=== PATIENT | male | born 2000 | race Asian ===

== ENCOUNTER 2019-08-31 15:08 | Outpatient (CLI) | payer OTHER, SELFPAY ==
--- NOTE | ~2019-08-31 | US_ITS ---
US scrotum doppler INDICATION: Testicular pain TECHNIQUE: Testicular sonogram utilizing grayscale and color Doppler FINDINGS: The testes are normal in size and appearance. No focal lesions are seen. The right testes measures 3.6 x 2.2 x 2.1 cm centimeters, and the left testis measures 3.3 x 1.8 x 2.3 cm cm. There is normal vascular flow to both testes. There is a 5 mm right epididymal cysts. There is no varicocele or hydrocele. There is physiologic fluid surrounding the testes. IMPRESSION: 1. 5 mm right epididymal cyst. Otherwise, unremarkable testicular ultrasound. Reviewed, dictated and finalized at location A.
== END 2019-08-31 15:09 | disposition home or self-care (01) ==
PROVIDERS: PCP Internal Medicine; Visit Provider Nurse Practitioner
DX: N50.3 Cyst of epididymis (principal)
CPT/HCPCS: 76870; 93976

== ENCOUNTER 2022-06-12 16:12 | Emergency (ER) | payer OTHER, SELFPAY ==
[2022-06-12 16:29] VITALS: BP 133/80; PULSE 99; RESP 16; TEMP 35.8; O2SAT 100
--- NOTE | 2022-06-12 17:07 | ED.URI ---
HPI - URI/Sore Throat General Chief Complaint: Upper Respiratory Infection Stated Complaint: cough Time Seen by Provider: 06/12/22 17:10 Source: patient, RN notes reviewed and old records reviewed Mode of arrival: ambulatory Limitations: no limitations History of Present Illness HPI Narrative: 21 year old male presents to [facility] care with complaints of cough, runny nose, sore throat and headache for the past 1 week duration. Patient states that he has been taking Tylenol , Advil cold medication, cough drops and he started Mucinex yesterday. He reports that headache and sore throat have improved but cough and congestion lingering. He reports that he took home COVID test which was negative. Patient does reports history of asthma and sinusitis. MD elicited complaint: cough and sore throat Pertinent past history: asthma and seasonal allergies Onset (ago): week(s) (1) Related Data Allergies Allergy/AdvReac Type Severity Reaction Status Date / Time No Known Allergies Allergy Unverified 06/12/22 17:03 Review of Systems Review of Systems: CONSTITUTIONAL: Denies malaise, chills, sweats, or fever. EYES: Denies visual changes, redness, or discharge. ENT: Reports rhinorrhea, congestion, sinus pain, no otalgia positive sore throat. CARDIOVASCULAR: Denies chest pain, palpitations, or edema. RESPIRATORY: Reports cough.? Denies dyspnea. GASTROINTESTINAL: Denies abdominal pain, nausea, vomiting, diarrhea SKIN: Denies rash or itching. MUSCULOSKELETAL: Denies myalgia. NEUROLOGIC: reports headache. All systems reviewed & are unremarkable except as noted in HPI and below PMFSH Past Medical History Medical History (Updated 06/14/22 @ 11:41 by Zohra Mcwilliams NP) Allergies Asthma Broken wrist Left 2015 Male circumcision age 1 Social History Social History Smoking status: Former smoker Alcohol intake: never Substance use: never Comments At time of signature, agree with nursing past medical, surgical, social and family history. There is no relevant family history pertinent to the presenting complaint Exam Narrative: GENERAL: Well-appearing, well-nourished, and in no acute distress. HEAD: Normocephalic EYES: PERRLA, conjunctivae clear ENT: Nares clear, turbinates edematous and erythematous, clear discharge. Mucous membranes moist. TM pearly barlow with dull light reflex bilaterally; no tragal tenderness. Oropharynx erythematous without lesions. Tonsils not enlarged and without exudate, no drooling, no hoarseness, no trismus, uvula midline.post nasal drainage NECK: Supple. No lymphadenopathy CHEST: Clear to auscultation, breath sounds equal. No wheezing, rhonchi, rales, or stridor. No respiratory distress, speaks in full sentences.harsh cough, SAO2 100% on room air HEART: Regular rate and rhythm. No murmur heard. SKIN: Warm, dry, no rash. NEURO: Alert and oriented x3. PSYCH: Normal mood and affect Course Course Emergency Course: Patient is aware of diagnosis, understands and agrees to treatment plan.? Anticipatory guidance given.? Patient agrees to follow-up as directed and is aware of reasons to seek care at the emergency department. Portions of this record may have been created with voice recognition software Level of Care: Express Care Visit Vital Signs Vital signs: Vital Signs Temperature 35.8 C L 06/12/22 16:29 Pulse Rate 99 06/12/22 16:29 Respiratory Rate 16 06/12/22 16:29 Blood Pressure 133/80 06/12/22 16:29 Pulse Oximetry 100 06/12/22 16:29 Oxygen Delivery Room Air 06/12/22 16:29 Temperature 35.8 C L 06/12/22 16:29 Pulse Rate 99 06/12/22 16:29 Respiratory Rate 16 06/12/22 16:29 Blood Pressure 133/80 06/12/22 16:29 Pulse Oximetry 100 06/12/22 16:29 Oxygen Delivery Room Air 06/12/22 17:04 Reviewed MDM - URI/Sore Throat MDM Narrative Medical decision making narrative: Different
== END 2022-06-12 18:05 | disposition home or self-care (01) ==
PROVIDERS: Emergency Provider Registered Nurse; PCP Internal Medicine
DX: J06.9 Acute upper respiratory infection, unspecified (principal); Z87.891 Personal history of nicotine dependence
CPT/HCPCS: 87081; 87880; 99213; G0463

== ENCOUNTER 2023-03-05 11:18 | Emergency (ER) | payer BC, SELFPAY ==
[2023-03-05 11:33] VITALS: BP 141/75; PULSE 87; RESP 16; TEMP 36.9; O2SAT 99
--- NOTE | 2023-03-05 11:39 | ED.URI ---
HPI - URI/Sore Throat General Chief Complaint: Upper Respiratory Infection Stated Complaint: + COVID/NEEDS DOCTOR NOTE FOR WORK Time Seen by Provider: 03/05/23 11:37 Source: patient and RN notes reviewed Mode of arrival: ambulatory Limitations: no limitations History of Present Illness HPI Narrative: 22-year-old male presents with concern for returning to work after having a positive COVID test. Reports he tested at home on Wednesday and his symptoms started on Wednesday. Reports he started having a sore throat 2 days ago. Reports he has been taking Mucinex. MD elicited complaint: sore throat Related Data Allergies Allergy/AdvReac Type Severity Reaction Status Date / Time No Known Allergies Allergy Unverified 03/05/23 11:26 Review of Systems Review of Systems: CONSTITUTIONAL: Denies malaise, chills, sweats, or fever. EYES: Denies visual changes, redness, or discharge. ENT: Reports rhinorrhea, congestion, and sore throat. CARDIOVASCULAR: Denies chest pain, palpitations, or edema. RESPIRATORY: Reports cough. Denies dyspnea. GASTROINTESTINAL: Denies abdominal pain, nausea, vomiting, diarrhea SKIN: Denies rash or itching. MUSCULOSKELETAL: Reports myalgia. NEUROLOGIC: Denies headache. All systems reviewed & are unremarkable except as noted in HPI and below PMFSH Past Medical History Medical History (Updated 03/05/23 @ 11:43 by Christine Grayson NP) Allergies Asthma Broken wrist Left 2015 Male circumcision age 1 Social History Social History Smoking status: Former smoker Alcohol intake: never Substance use: never Comments At time of signature, agree with nursing past medical, surgical, social and family history. There is no relevant family history pertinent to the presenting complaint Exam Narrative: GENERAL: Well-appearing, well-nourished, and in no acute distress. HEAD: Normocephalic EYES: PERRLA, conjunctivae clear ENT: Nares clear, turbinates edematous and erythematous, clear discharge. Mucous membranes moist. TM pearly barlow with dull light reflex bilaterally; no tragal tenderness. Oropharynx erythematous without lesions. Tonsils not enlarged and without exudate, no drooling, no hoarseness, no trismus, uvula midline. NECK: Supple. No lymphadenopathy CHEST: Clear to auscultation, breath sounds equal. No wheezing, rhonchi, rales, or stridor. No respiratory distress, speaks in full sentences. HEART: Regular rate and rhythm. No murmur heard. SKIN: Warm, dry, no rash. NEURO: Alert and oriented x3. PSYCH: Normal mood and affect Course Course Emergency Course: Patient is aware of diagnosis, understands and agrees to treatment plan. Anticipatory guidance given. Patient agrees to follow-up as directed and is aware of reasons to seek care at the emergency department. Portions of this record may have been created with voice recognition software Level of Care: Express Care Visit Vital Signs Vital signs: Vital Signs Temperature 98.4 F 03/05/23 11:33 Pulse Rate 87 03/05/23 11:33 Respiratory Rate 16 03/05/23 11:33 Blood Pressure 141/75 H 03/05/23 11:33 Pulse Oximetry 99 03/05/23 11:33 Temperature 98.4 F 03/05/23 11:33 Pulse Rate 87 03/05/23 11:33 Respiratory Rate 16 03/05/23 11:33 Blood Pressure 141/75 H 03/05/23 11:33 Pulse Oximetry 99 03/05/23 11:33 Reviewed. MDM - URI/Sore Throat MDM Narrative Medical decision making narrative: Differential diagnosis considered: Kumar virus, strep pharyngitis, allergic rhinitis, upper respiratory tract infection, sinusitis, rhinosinusitis, nasopharyngitis. viral pharyngitis, otitis media, otitis externa, pneumonia, bronchitis, viral cough syndrome, viral syndrome, and influenza. Exam findings show no acute concerns or changes; patient is non-toxic appearing and is in no distress. Patient is appropriate for outpatient treatment and follow-up. Lab Data Attestation: I re
== END 2023-03-05 11:47 | disposition home or self-care (01) ==
PROVIDERS: Emergency Provider Nurse Practitioner; PCP Internal Medicine
DX: J02.0 Streptococcal pharyngitis (principal); Z87.891 Personal history of nicotine dependence; J45.909 Unspecified asthma, uncomplicated
CPT/HCPCS: 87880; 99213; G0463

== ENCOUNTER 2024-05-10 17:01 | Emergency (ER) | payer BC, SELFPAY ==
--- NOTE | 2024-05-10 17:02 | ED_ITS ---
HPI - URI/Sore Throat General Chief Complaint: Upper Respiratory Infection Stated Complaint: COUGH/COLD Time Seen by Provider: 05/10/24 17:02 Source: patient Mode of arrival: ambulatory Limitations: no limitations History of Present Illness HPI Narrative: Patient is a 23-year-old male who presents with body aches, headache, congestion, productive cough, fatigue for 4 days. Denies any fever, chills, nausea, vomiting, diarrhea. Has taken [id number] medicine no relief. Related Data Allergies Allergy/AdvReac Type Severity Reaction Status Date / Time No Known Allergies Allergy Unverified 05/10/24 17:05 Review of Systems Review of Systems: All systems reviewed & are unremarkable except as noted in HPI and below Constitutional: Constitutional: Reports body ache(s), Denies chills, Reports fatigue, Denies fever(s), Reports headache(s), Denies malaise and Denies weakness Eyes: Eyes: Denies blurry vision, Denies itchy eyes and Denies loss of vision ENT: Denies otalgia, Denies headache(s), Reports nasal congestion, Denies sinus pain and Denies sore throat Cardiovascular: Cardiovascular: Denies chest pain, Denies irregular heart rhythm and Denies dyspnea Respiratory: Respiratory: Reports cough and Denies dyspnea Gastrointestinal: Gastrointestinal: Denies abdominal pain, Denies diarrhea, Denies nausea and Denies vomiting Musculoskeletal: Musculoskeletal: Denies back pain, Denies myalgias and Denies arthralgias Integumentary/Breasts: Skin/Breast: Denies pruritus and Denies rash Neurologic: Denies headache(s), Denies loss of vision and Denies weakness Psychiatric: Psychiatric: Reports no additional psychiatric complaints Endocrine: Endocrine: Denies fatigue Allergic/Immunologic: Allergic/Immunologic: Denies itchy eyes PMFSH Past Medical History Medical History Male circumcision age 1 Asthma Allergies Broken wrist Left 2014 Social History Social History Smoking status: Former smoker Alcohol intake: never Substance use: never Comments At time of signature, agree with nursing past medical, surgical, social and family history. There is no relevant family history pertinent to the presenting complaint. Exam Const: General: cooperative, healthy appearing, comfortable, no acute distress and well nourished Nutritional Appearance: well nourished Orientation/consciousness: patient oriented x3 Limitations: no limitations HENMT: Head: normal to inspection, normocephalic and atraumatic Ears: hearing grossly normal bilaterally, external ears normal, TM's normal bilaterally, EAC's normal and no periauricular adenopathy Face/Nose/Sinus: Normal external nose present, Abnormal mucous membranes and turbinates present erythematous bilateral and diffuse, normal facial exam, sinuses nontender and face symmetric Face and sinus: normal facial exam, sinuses nontender and face symmetric Mouth: Yes Normal oral and palatal mucosa present, Yes lip normal, Yes tongue normal, Yes Normal salivary glands and ducts present, Yes oropharynx normal and Yes moist mucous membranes Teeth and gingiva: dentition normal Throat: posterior oropharynx normal, tonsils normal and uvula midline Eyes: General: appearance normal, both eyes and all related structures Alignment and Position: alignment normal and position normal Periorbital: periorbital findings normal Eyelids: eyelids normal Pupils: Equal, round and reactive pupils present Neck: Neck: normal visual inspection, full ROM, no lymphadenopathy and supple Chest: Chest palpation & inspection: normal inspection of the chest and normal palpation of entire chest wall Resp: Effort & Inspection: normal respiratory effort and able to speak in complete sentences Auscultation: clear to auscultation bilaterally, no crackles, no rales, no rhonchi and no wheezes Cardio: Rate: regular rate Rhythm: regular rhythm Heart sounds: S1 normal heart sound present and S2 normal heart sound present GI: Inspection: normal to inspection Skin: General skin exam: normal color and no rashes or lesions noted Neuro: General: patient oriented x3 and moves all extremities Cranial ner ves: Yes Equal, round and reactive pupils present Speech: normal speech Gait exam (Neuro): Normal gait present Extrem: General: normal to inspection, full ROM and no edema Psych: Appearance: grossly normal and well kempt Mental Status: mental status grossly normal Speech and movement: Normal speech and movement present Affect: normal affect Attitude: cooperative Thought process: Normal thought process present Course Course Emergency Course: Discharge instructions reviewed with patient, as well as provided in writing per nursing staff. The instructions also include specific and strict return/GO TO THE ER as well as f/u information. All questions have been answered, and the patient deny any further questions with discharge and discharge plan. Portions of this record may have been created with voice recognition software Level of Care: Express Care Visit Vital Signs Vital signs: Vital Signs Temperature 36.5 C 05/10/24 17:11 Pulse Rate 96 05/10/24 17:11 Respiratory Rate 16 05/10/24 17:11 Blood Pressure 137/87 05/10/24 17:11 Pulse Oximetry 98 05/10/24 17:11 Temperature 36.5 C 05/10/24 17:11 Pulse Rate 96 05/10/24 17:11 Respiratory Rate 16 05/10/24 17:11 Blood Pressure 137/87 05/10/24 17:11 Pulse Oximetry 98 05/10/24 17:11 Reviewed MDM - URI/Sore Throat MDM Narrative Medical decision making narrative: Pt well hydrated appearing, in no respiratory distress, hemodynamically stable. Recommend supportive care. The patient is stable at time of discharge the clinical impression was discussed and the patient was given the opportunity to ask questions, which were addressed as completely as possible given the information available at present. Anticipatory guidance and return to care precautions were discussed and the importance of primary care follow-up was stressed and encouraged. The patient voiced understanding of the plan, indications to return, and the need for follow-up. Differential diagnosis considered: Kumar virus, strep pharyngitis, allergic rhinitis, upper respiratory tract infection, sinusitis, rhinosinusitis, nasopharyngitis. viral pharyngitis, otitis media, otitis externa, otitis effusion, foreign body, cerumen impaction, viral syndrome, and influenza.? Exam findings show no acute concerns or changes; patient is non-toxic appearing and is in no distress.? Patient is appropriate for outpatient treatment and follow- up.? Medical Records Attestation: I reviewed the patient's medical records. Lab Data Attestation: I reviewed the patient's lab results. Labs: Lab Results 05/10/24 Range/Units 17:19 POC Influenza A Ag Negative (Negative) POC Influenza B Ag Negative (Negative) POC SARS CoV-2 Ag Negative (Negative) Discharge Plan Discharge Clinical Impression: Upper respiratory infection Qualifiers: URI type: unspecified viral URI Qualified Code(s): J06.9 - Acute upper respiratory infection, unspecified Patient Disposition: Home, Self-Care Condition: Stable Additional Instructions: You were negative for flu and COVID Your symptoms are likely due to a viral illness, which is not treated with antibiotics. Viral symptoms can be present for up to a few weeks. -For fever/pain, you may take: Tylenol 650-1000mg by mouth every 4-6 hours. Do not exceed 4000mg in 24 hours. Advil (Ibuprofen) 600 mg by mouth every 6 hours. Do not exceed 2400mg in 24 hours. 8 AM: Tylenol 11 AM: Ibuprofen 2 PM: Tylenol 5 PM: Ibuprofen 8 PM: Tylenol 11 PM: Ibuprofen 2 AM: Tylenol 5 AM: Ibuprofen -Antihistamine medication such as Benadryl/Zyrtec at night and Claritin/Dana during the day can help improve symptoms. -Use Flonase twice a day for 5 days then daily to help reduce the inflammation and dry up your sinuses. -You can also use Sudafed behind the pharmacy counter(12 or 24 hour). Be sure to drink plenty of water with these medications at least 8 ounces with every dose and it is important to drink 8 to 10 glasses of water per day. Water is a natural decongestant -Eat and drink things that are easy to swallow, like tea or soup, or popsicles. -Oral rinses such as: Salt water gargles and/or may use topical anesthetic (eg. Chloraseptic spray) or lozenges to relieve dryness or throat pain). -Frequent hand washing or hand senior office assistant is one of the best ways to prevent spread of infection. -Using a vaporizer or humidifier at night will also help thin secretions and help with coughing up phlegm. -Follow up with primary care provider in 3-5 days if condition is not improving - For new or worsening symptoms go directly to the nearest ER Patient Language: Montenegrin Prescriptions: New benzonatate 100 mg capsule 100 mg PO BID PRN (Reason: cough) Qty: 14 0RF fluticasone propionate [Flonase Allergy Relief] 50 mcg/actuation spray,suspension 1 spray intranasal DAILY Qty: 16 0RF Rx Instructions: administer into each nostril Follow-up/Referrals: Morteza Rodriguez DO [Primary Care Provider] - 3 Days Stand Alone Forms: Work/School Release IP Time of Disposition: 17:24
[2024-05-10 17:11] VITALS: BP 137/87; PULSE 96; RESP 16; TEMP 36.5; O2SAT 98
[2024-05-10 17:21] LABS: EDCOVIDSCREEN Negative (Negative); EDINFLUASCREEN Negative (Negative); EDINFLUBSCREEN Negative (Negative)
== END 2024-05-10 17:30 | disposition home or self-care (01) ==
PROVIDERS: Emergency Provider Nurse Practitioner Family; PCP Internal Medicine
DX: J06.9 Acute upper respiratory infection, unspecified (principal); Z20.822 Contact with and (suspected) exposure to COVID-19; Z87.891 Personal history of nicotine dependence; J45.909 Unspecified asthma, uncomplicated
CPT/HCPCS: 87426; 87804; 99213; G0463

== ENCOUNTER 2024-06-20 15:30 | Emergency (ER) | payer BC, SELFPAY ==
[2024-06-20 15:34] VITALS: BP 121/73; PULSE 83; RESP 16; TEMP 36.3; O2SAT 99
--- NOTE | 2024-06-20 15:36 | ED.URI ---
HPI - URI/Sore Throat General Chief Complaint: Upper Respiratory Infection Stated Complaint: BODY ACHES/HEADACHE Source: patient and RN notes reviewed Mode of arrival: ambulatory Limitations: no limitations History of Present Illness HPI Narrative: Patient is a 23-year-old male who presents to the [facility] with complaints of congestion, body aches, and headache that started this morning. He endorses an infrequent nonproductive cough. Denies chest pain or shortness of breath. Denies known fevers. Believes that he could have COVID or flu. However, he is unsure of any known sick contacts. Related Data Allergies Allergy/AdvReac Type Severity Reaction Status Date / Time No Known Allergies Allergy Unverified 06/20/24 15:35 Review of Systems Review of Systems: CONSTITUTIONAL: Denies fever, chills, or sweats. EYES: Denies visual changes, redness, or discharge. ENT: Denies otalgia and sore throat. Reports congestion. CARDIOVASCULAR: Denies chest pain, palpitations, or edema. RESPIRATORY: Denies cough or dyspnea. GASTROINTESTINAL: Denies abdominal pain, nausea, vomiting, or diarrhea. GENITOURINARY: Denies dysuria or hematuria. SKIN: Denies rash or itching. MUSCULOSKELETAL: Denies back pain and joint pain, but reports myalgia. NEUROLOGIC: Reports headache but denies numbness or weakness. Pertinent positives per HPI. [facility] Past Medical History Medical History Male circumcision age 1 Asthma Allergies Broken wrist Left 2014 Social History Social History Smoking status: Former smoker Alcohol intake: never Substance use: never Comments At the time of my signature, I reviewed and agree with the nursing past medical, surgical, social, and family history. There is no relevant family history pertinent to the patient complaint. Exam Narrative: GENERAL: This is a well-nourished, well-developed patient, in no apparent distress. HEAD: normocephalic, atraumatic. EYES: PERRL. Sclera clear/white. Vision is grossly intact. EARS: External ears normal, auditory canals clear and without drainage, TMs normal without perforation. Hearing grossly intact. NOSE: External nose normal with no obvious nasal discharge, nares without redness, no rhinorrhea. THROAT: Mucous membranes moist, posterior pharynx clear. NECK: Neck supple, non-tender without lymphadenopathy, masses or thyromegaly. CARDIOVASCULAR: Regular rate and rhythm without murmurs, gallops, or rubs. RESPIRATORY: Clear to auscultation. Breath sounds equal bilaterally. No wheezes, rales, or rhonchi. GASTROINTESTINAL: Abdomen soft, non-tender, nondistended. Bowel sounds are active. No hepato-splenomegaly, or palpable masses. No guarding. SKIN: warm, intact with no suspicious lesions or rash, good texture and turgor. NEURO: awake, alert, and oriented to person, place and time. There were no obvious focal neurologic abnormalities. EXTREMITIES: No clubbing, cyanosis, or edema. No joint tenderness, effusion, or edema noted. BACK: Nontender without deformity or crepitance. No flank tenderness. Course Course Level of Care: Express Care Visit Vital Signs Vital signs: Vital Signs Temperature 97.3 F L 06/20/24 15:34 Pulse Rate 83 06/20/24 15:34 Respiratory Rate 16 06/20/24 15:34 Blood Pressure 121/73 06/20/24 15:34 Pulse Oximetry 99 06/20/24 15:34 Oxygen Delivery Room Air 06/20/24 15:34 Temperature 97.3 F L 06/20/24 15:34 Pulse Rate 83 06/20/24 15:34 Respiratory Rate 16 06/20/24 15:34 Blood Pressure 121/73 06/20/24 15:34 Pulse Oximetry 99 06/20/24 15:34 Oxygen Delivery Room Air 06/20/24 15:34 Reviewed MDM - URI/Sore Throat MDM Narrative Medical decision making narrative: Take steroids as directed. Increase fluids at home. Avoid any and all smoke. May use a humidifier in the bedroom. Increase your Vitamin C. Follow-up with personal physician in 2-5 days. Differential Diagnosis Differential diagnosis: Likely upper respiratory infection, sinusitis, viral infection and other ( COVID) Lab Data Attestation: I reviewed the patient's lab results. Critical Care Time Critical Care Time Critical Care Time: No Discharge Plan Discharge Clinical Impression: Viral sinusitis Patient Disposition: Home, Self-Care Condition: Stable Instructions: Acute Bronchitis (ED) Additional Instructions: Take steroids as directed. Increase fluids at home. Avoid any and all smoke. May use a humidifier in the bedroom. Increase your Vitamin C. Follow-up with personal physician in 2-5 days. Patient Language: Uruguayan Prescriptions: New prednisone 50 mg tablet 50 mg PO DAILY 5 Days Qty: 5 0RF fluticasone propionate [Flonase Allergy Relief] 50 mcg/actuation spray,suspension 1 spray intranasal BID Qty: 16 0RF Rx Instructions: administer into each nostril Follow-up/Referrals: Morteza Rodriguez DO [Primary Care Provider] - Time of Disposition: 15:59
[2024-06-20 15:59] LABS: EDCOVIDSCREEN Negative (Negative); EDINFLUASCREEN Negative (Negative); EDINFLUBSCREEN Negative (Negative)
== END 2024-06-20 16:10 | disposition home or self-care (01) ==
PROVIDERS: Emergency Provider Nurse Practitioner; PCP Internal Medicine
DX: J32.8 Other chronic sinusitis (principal); B97.89 Other viral agents as the cause of diseases classified elsewhere; J45.909 Unspecified asthma, uncomplicated; Z20.822 Contact with and (suspected) exposure to COVID-19
CPT/HCPCS: 87426; 87804; 99213; G0463

== ENCOUNTER 2024-10-07 19:01 | Emergency (ER) | payer BC, SELFPAY ==
--- NOTE | 2024-10-07 19:10 | ED_ITS ---
HPI - Chest Pain General Chief Complaint: Chest Pain Stated Complaint: Chest Pain, Arm Numbness Time Seen by Provider: 10/07/24 19:10 Source: patient Mode of arrival: ambulatory Limitations: no limitations History of Present Illness HPI narrative: 23 y/o male presented for c/o chest pain and heart racing. onset this morning when he woke. Pain is to the center of the chest, described as constant, rates 4/10. 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 Says he drank coffee after onset. Admits to heavy lifting at his job this week but denies specific injury. Denies dizziness, nausea, vomiting, cough, wheezing or fever. Denies hx anxiety, drug use, or excessive caffeine. 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 Related Data Allergies Allergy/AdvReac Type Severity Reaction Status Date / Time No Known Allergies Allergy Verified 10/07/24 19:11 Review of Systems Review of Systems: CONSTITUTIONAL: Denies body aches, fever, chills, or sweats. EYES: Denies visual changes, redness, or discharge. ENT: Denies rhinorrhea, congestion, sore throat, or otalgia. CARDIOVASCULAR: reports chest pain, palpitations RESPIRATORY: Denies cough reports dyspnea. GASTROINTESTINAL: Denies abdominal pain, nausea, vomiting, or diarrhea. SKIN: Denies rash, itching, or wounds. MUSCULOSKELETAL: Denies back pain, joint pain, or myalgia. NEUROLOGIC: Denies headache, or extremity weakness reports left arm tingling PSYCH: Denies depression or anxiety. All systems reviewed & are unremarkable except as noted in HPI and below PMFSH Past Medical History Medical History Male circumcision age 1 Asthma Allergies Broken wrist Left 2015 Social History Social History Smoking status: Former smoker Alcohol intake: never Substance use: never Comments At time of signature, I have reviewed and agree with nursing past medical, surgical, social and family history unless otherwise noted. Please see nursing chart for further information. There is no relevant family history pertinent to the presenting complaint Exam Narrative: GENERAL: Well-appearing, and in no acute distress. EYES: EOMI. No redness or drainage. Conjunctivae normal. ENT: Mucous membranes pink and moist. No rhinorrhea. CHEST: No respiratory distress. Clear to auscultation. Nontender chest with palpation. HEART: Regular rate and rhythm. No murmur appreciated. Normal peripheral pulses. ABDOMEN: Soft, nontender, nondistended, normal active bowel sounds. EXTREMITIES: Normal range of motion. Serology Teacher strength equal bilaterally. Normal sensation to BUEs SKIN: Warm, dry, no rash. Capillary refill normal. Normal skin turgor. NEURO: No focal deficits. Alert and oriented x3. Gait steady. PSYCH: Appears anxious Course Course Emergency Course: Patient is aware of diagnosis, understands and agrees to treatment plan. Anticipatory guidance given. Patient agrees to follow-up as directed and is aware of reasons to seek care at the emergency department. Portions of this record may have been created with voice recognition software Level of Care: Express Care Visit MDM - Chest Pain MDM Narrative Medical decision making narrative: Pt presented with mid chest pain, palpitations, and left arm tingling. EKG NSR, VSS. Discussed possible etiologies. Pt agreeable to transfer to ER. Differential Diagnosis Differential diagnosis: Likely other (STEMI, AAA, PE, pneumothorax, cardiac tamponade, esophageal rupture, pneumonia, GERD, musculoskeletal pain, endocarditis, pericarditis, URI, bronchitis, anxiety) ECG Data EKG #1: Attestation: I personally reviewed and interpreted this ECG as follows: ( Normal sinus rhythm rate 79, W[place] 139, QRS 93, QT/ QTC 342/377) ECG completion date: 10/07/24 ECG completion time: 19:19 Prior ECG tracings: not available for review EKG Interpretation: normal rate and sinus rhythm Discharge Plan Discharge Clinical Impression: Chest pain Patient Disposition: Acute Care Hospital Condition: Stable Patient Language: Irish Follow-up/Referrals: Morteza Rodriguez DO [Primary Care Provider] - Time of Disposition: 19:34
--- NOTE | 2024-10-07 19:15 | ECG_ITS ---
Test Date: 2024-10-07 19:19:07 Measurements Intervals [place] Rate: 79 P: 47 ND: 139 QRS: 75 QRSD: 93 T: 30 QT: 342 QTc: 394 Interpretive Statements SINUS RHYTHM POSSIBLE RIGHT VENTRICULAR CONDUCTION DELAY [RSR (QR) IN V1/V2] No previous ECG available for comparison Electronically Signed On 10-08-2024 13:40:43 CDT by Juan Zaragoza M.D.
[2024-10-07 19:18] VITALS: BP 123/75; PULSE 88; RESP 20; TEMP 36.6; O2SAT 100
== END 2024-10-07 19:33 | disposition short-term general hospital (02) ==
PROVIDERS: Emergency Provider Nurse Practitioner Family; PCP Internal Medicine
DX: R07.9 Chest pain, unspecified (principal); J45.909 Unspecified asthma, uncomplicated; Z87.891 Personal history of nicotine dependence
CPT/HCPCS: 93005; 99213; G0463

== ENCOUNTER 2024-10-07 19:55 | Emergency (ER) | payer BC, SELFPAY ==
[2024-10-07] VITALS (17 sets, daily range): BP systolic 132–158; BP diastolic 71–96; PULSE 76–94; RESP 14–29; TEMP 36.7; O2SAT 96–100
--- NOTE | ~2024-10-07 | CT_ITS ---
EXAMINATION: CTA chest PE protocol DATE: 10/08/2024 12:02 CDT INDICATION: Chest pain and left upper extremity paresthesias TECHNIQUE: Computed tomographic angiography (CTA) of the chest was performed with 100 mL Omnipaque-35 0 intravenous contrast. The dose-length product was 301.83 mGy-cm. Maximum intensity projection 3D-re constructions of the aorta and other arteries were constructed by the technologist on a separate work station. COMPARISON: None. Reference is made to a plain film evaluation of the chest, performed 4 hours earlie r. FINDINGS/OBSERVATIONS: PULMONARY ARTERIES: No filling defect is identified within the main or proximal pulmonary artery. The main pulmonary artery is not enlarged. THORACIC AORTA: No aneurysmal dilatation or dissection is present. The great vessels are intact LUNGS: Right apical infiltrates. MEDIASTINUM: No morphologically suspicious or pathologically enlarged lymph nodes are identified with in the mediastinum or bilateral axilla. BONES OF THE CHEST: No acute fracture. No significant degenerative disease. No lytic or blastic lesions. HEART: The heart is of normal size, without pericardial effusion. IMPRESSION: No pulmonary embolus. No thoracic aortic dissection. Right apical infiltrate. The remainder of the lungs are clear. Reviewed, dictated and finalized at location A.
--- NOTE | ~2024-10-07 | XR_ITS ---
EXAMINATION: XR chest 2V Exam Date/Time: 10/07/2024 20:19 CDT HISTORY: SOB, CHEST PAIN. Comparison: None. RESULT: Lines, tubes, and devices: None. Lungs and pleura: Ill-defined subsegmental opacity in the right upper lobe. Cardiomediastinal silhouette: Stable. Other: No acute osseous or upper abdominal finding. IMPRESSION: Subsegmental right upper lobe consolidation, may represent a focus of infection. Recommend radiograph ic follow-up to ensure resolution. Reviewed, dictated and finalized at location K. IMPRESSION: Subsegmental right upper lobe consolidation, may represent a focus of infection . Recommend radiographic follow-up to ensure resolution.
--- NOTE | 2024-10-07 19:56 | ECG_ITS ---
Test Date: 2024-10-07 20:05:02 Measurements Intervals [place] Rate: 86 P: 59 MS: 151 QRS: 73 QRSD: 90 T: 41 QT: 335 QTc: 401 Interpretive Statements SINUS RHYTHM ST ELEVATION, PROBABLY EARLY REPOLARIZATION [ST ELEVATION WITH NORMALLY INFLECTED T WAVE] Compared to ECG 10/07/2024 19:19:07 no change compared to prior EKG Electronically Signed On 10-08-2024 13:41:19 CDT by Juan Zaragoza M.D.
[2024-10-07 20:19] LABS: Hematocrit 43.6 % (42.0-52.0); Hemoglobin 14.2 g/dL (14.0-18.0); Immature Granulocyte Percent A 0.4 % (0-0.5); Lymphocytes Absolute Auto 1.99 K/mm3 (0.9-3.2); Mean Corpuscular HGB Conc 32.6 g/dl (32-36); Mean Corpuscular Hemoglobin 26.6 pg (26-34); Mean Corpuscular Volume 81.8 fl (80-100); Nucleated Red Blood Cells Absolute Auto 0.000 K/mm3 (0.0-0.012); Nucleated Red Blood Cells Perc 0.0 % (0.0-0.2); Platelet Count Result 388 k/mm3 (150-375); Red Blood Count 5.33 M/mm3 (4.6-6.20); White Blood Count 9.8 K/mm3 (4.5-10.0)
[2024-10-07 20:29] LABS: Alanine Aminotransferase 45 U/L (6-50); Albumin Level 4.6 g/dL (3.5-5.1); Alkaline Phosphatase 99 U/L (38-126); Anion Gap 13 mmol/L (4-12); Aspartate Amino Transferase 34 U/L (17-59); Bilirubin,Total 0.4 mg/dL (0.2-1.3); Blood Urea Nitrogen 12 mg/dL (9-20); Calcium 10.0 mg/dL (8.4-10.2); Carbon Dioxide 23 mmol/L (22-30); Chloride 101 mmol/L (98-107); Estimated CRCL calculation 92 ml/min; Estimated Glomerular Filt Rate > 60; Glucose 100 mg/dL (65-110); Lipase 39 U/L (23-300); Potassium 3.7 mmol/L (3.4-5.0); Sodium 137 mmol/L (137-145); Total Protein 8.4 g/dL (6.3-8.2)
[2024-10-07 20:38] LABS: INR 1.0; Prothrombin Time 12.9 Seconds (11.1-14.7)
[2024-10-07 20:39] LABS: Partial Thromboplastin Time 35.2 Seconds (22.3-36.8)
[2024-10-07 20:43] LABS: Troponin I < 0.012 ng/mL (0.000-0.034)
[2024-10-07] MEDS: ASPIRIN 81 MG CHEWABLE TABLET 324 MG PO (21:05)
--- NOTE | 2024-10-07 22:48 | ECG_ITS ---
Test Date: 2024-10-07 22:56:21 Measurements Intervals [place] Rate: 79 P: 51 WY: 145 QRS: 68 QRSD: 98 T: 37 QT: 342 QTc: 393 Interpretive Statements SINUS RHYTHM Compared to ECG 10/07/2024 20:05:02 no change Electronically Signed On 10-08-2024 13:44:19 CDT by Juan Zaragoza M.D.
[2024-10-07 23:25] LABS: Troponin I < 0.012 ng/mL (0.000-0.034)
--- NOTE | 2024-10-07 23:39 | ED.CHESTPAIN ---
HPI - Chest Pain General Chief Complaint: Chest Pain <Kareen Albarado PA-C - Last Filed: 10/08/24 02:20> Stated Complaint: SOB, Palpitations <Kareen Albarado PA-C - Last Filed: 10/08/24 02:20> Time Seen by Provider: 10/07/24 22:29 <Kareen Albarado PA-C - Last Filed: 10/08/24 02:20> History of Present Illness HPI narrative: 23-year-old male with a reported history of asthma hyperlipidemia presents to the emergency department for chest pain that started this morning. Patient states when he woke up he was having a sensation in the left side of his chest that felt like something was ?lodged in my chest?. He states around 8:00 p.m. he began developing numbness and tingling in his left arm which resolved about 2 hours prior to my evaluation. He denies injury or trauma to his chest, cough or congestion, hemoptysis, abdominal pain, nausea vomiting, diarrhea. He denies aggravating or alleviating factors. He is adopted so is unfamiliar with his family's cardiac or CVA history. He does not smoke. He denies personal cardiac history. <Kareen Albarado PA-C - Last Filed: 10/08/24 02:20> Related Data Allergies/Adverse Reactions: Allergies Allergy/AdvReac Type Severity Reaction Status Date / Time No Known Allergies Allergy Verified 10/07/24 19:11 <Kareen Albarado PA-C - Last Filed: 10/08/24 02:20> Review of Systems Review of Systems: All systems reviewed & are unremarkable except as noted in HPI and below <Kareen Albarado PA-C - Last Filed: 10/08/24 02:20> [facility] Past Medical History Medical History: Medical History Male circumcision age 1 Asthma Allergies Broken wrist Left 2014 <Kareen Albarado PA-C - Last Filed: 10/08/24 02:20> Social History Social History: Social History Smoking status: Former smoker Alcohol intake: never Substance use: never <Kareen Albarado PA-C - Last Filed: 10/08/24 02:20> Exam Narrative: GENERAL: Well-appearing, well-nourished, and in no acute distress. HEAD: Normocephalic, atraumatic. EYES: PERRLA and EOMI. ENT: Nares clear, no rhinorrhea or epistaxis. Mucous membranes moist. NECK: Supple. CHEST: Clear to auscultation. No respiratory distress. No tenderness to chest wall HEART: Regular rate and rhythm. No murmur heard. Normal peripheral pulses. ABDOMEN: Soft, nontender, nondistended, normal active bowel sounds. EXTREMITIES: Normal range of motion. No edema. SKIN: Warm, dry, no rash. NEURO: No focal deficits. Alert and oriented x3 <Kareen Albarado PA-C - Last Filed: 10/08/24 02:20> Course TOOL MAKER APPRENTICE/PA Physician Supervision This visit was performed by both a physician and an APC. I performed all aspects of the MDM as documented. <Celestino Ledezma MD - Last Filed: 10/08/24 06:10> Vital Signs Vital signs: Vital Signs Temperature 36.7 C 10/07/24 20:04 Pulse Rate 87 10/07/24 20:04 Respiratory Rate 16 10/07/24 20:04 Blood Pressure 135/88 10/07/24 20:04 Pulse Oximetry 99 10/07/24 20:04 Oxygen Delivery Room Air 10/07/24 20:04 Temperature 36.7 C 10/07/24 20:04 Pulse Rate 79 10/08/24 01:15 Respiratory Rate 20 10/08/24 01:15 Blood Pressure 137/86 10/08/24 00:01 Pulse Oximetry 100 10/08/24 01:15 Oxygen Delivery Room Air 10/07/24 20:04 <Kareen Albarado PA-C - Last Filed: 10/08/24 02:20> Vital Signs Temperature 36.7 C 10/07/24 20:04 Pulse Rate 87 10/07/24 20:04 Respiratory Rate 16 10/07/24 20:04 Blood Pressure 135/88 10/07/24 20:04 Pulse Oximetry 99 10/07/24 20:04 Oxygen Delivery Room Air 10/07/24 20:04 Temperature 36.7 C 10/07/24 20:04 Pulse Rate 79 10/08/24 01:15 Respiratory Rate 20 10/08/24 01:15 Blood Pressure 137/86 10/08/24 00:01 Pulse Oximetry 100 10/08/24 01:15 Oxygen Delivery Room Air 10/07/24 20:04 <Celestino Ledezma MD - Last Filed: 10/08/24 06:10> MDM - Chest Pain MDM Narrative Medical decision making narrative: 23-year-old male with reported history of asthma hyperlipidemia presents to the emergency department for chest pain that started this morning while he was lying down. No aggravating or alleviating factors. Around 8:00 p.m. he began developing numbness and tingling to his left upper extremity which result 2 hours prior to my evaluation. Triage vitals are stable. Patient is afebrile and nontoxic appearing resting comfortably in exam bed. EKG shows normal sinus rhythm with a rate of 86 ppm, normal MT interval, normal QRS duration, normal QTC, findings concerning for early repolarization, otherwise no ischemic changes. Repeat EKG is unchanged. Troponin is undetectable x2. Lab work shows no leukocytosis or anemia. Chemistries are unremarkable. Chest x-ray shows a subsegmental right upper lobe consolidation which may represent a focus of infection. Given abnormal chest x-ray findings and patient's reported numbness and into the left upper extremity, CTA of the chest was obtained which shows no PE, there is airspace consolidation of the right upper lobe concerning for mild pneumonia and right hilar and subcarinal adenopathy which may be reactive to the pneumonia. Consider follow-up for this finding. Patient was updated on results. He was given Ativan with improvement. On re-evaluation he is resting comfortably in exam bed and states his symptoms have resolved. He was started on Augmentin azithromycin for CAP advised follow-up with his PCP. Discussed strict ED return precautions. He is agreeable with the plan verbalized understanding. Discharged in stable condition. <Kareen Albarado PA-C - Last Filed: 10/08/24 02:20> Lab Data Result diagrams: 10/07/24 20:13 10/07/24 20:13 <Kareen Albarado PA-C - Last Filed: 10/08/24 02:20> Labs: Lab Results 10/07/24 10/07/24 Range/Units 20:13 22:54 WBC 9.8 (4.5-10.0) K/mm3 RBC 5.33 (4.6-6.20) M/mm3 Hgb 14.2 (14.0-18.0) g/dL Hct 43.6 (42.0-52.0) % MCV 81.8 (80-100) fl MCH 26.6 (26-34) pg MCHC 32.6 (32-36) g/dl RDW 13.2 (11.5-14.5) % Plt Count 388 H (150-375) k/mm3 MPV 8.5 (7.4-10.4) fl Immature Gran % (Auto) 0.4 (0-0.5) % Neut % (Auto) 70.9 (45.5-73.1) % Lymph % (Auto) 20.3 (18.3-44.2) % Store[place] % (Auto) 6.6 (2.6-8.5) % Eos % (Auto) 1.5 (0-4.4) % Baso % (Auto) 0.3 (0.2-1.2) % Lymph # (Auto) 1.99 (0.9-3.2) K/mm3 [place]y # (Auto) 0.7 H (0.1-0.6) K/mm3 Eos # (Auto) 0.2 (0-0.3) K/mm3 Baso # (Auto) 0.0 (0.0-0.1) K/mm3 Abs Immat Gran (auto) 0.04 H (0.00-0.031) K/mm3 Absolute Neuts (auto) 6.9 H (1.3-6.7) K/mm3 Absolute Nucleated RBC 0.000 (0.0-0.012) K/mm3 Nucleated RBC % 0.0 (0.0-0.2) % PT 12.9 (11.1-14.7) Seconds INR 1.0 APTT 35.2 (22.3-36.8) Seconds Sodium 137 (137-145) mmol/L Potassium 3.7 (3.4-5.0) mmol/L Chloride 101 (98-107) mmol/L Carbon Dioxide 23 (22-30) mmol/L Anion Gap 13 H (4-12) mmol/L BUN 12 (9-20) mg/dL Creatinine 0.90 (0.7-1.3) mg/dL Estim Creat Clear Calc 92 ml/min Estimated GFR > 60 (59 - ) Glucose 100 (65-110) mg/dL Calcium 10.0 (8.4-10.2) mg/dL Total Bilirubin 0.4 (0.2-1.3) mg/dL AST 34 (17-59) U/L ALT 45 (6-50) U/L Alkaline Phosphatase 99 (38-126) U/L Troponin I < 0.012 < 0.012 (0.000-0.034) ng/mL Total Protein 8.4 H (6.3-8.2) g/dL Albumin 4.6 (3.5-5.1) g/dL Lipase 39 (23-300) U/L <Kareen Albarado PA-C - Last Filed: 10/08/24 02:20> Lab Results 10/07/24 10/07/24 Range/Units 20:13 22:54 WBC 9.8 (4.5-10.0) K/mm3 RBC 5.33 (4.6-6.20) M/mm3 Hgb 14.2 (14.0-18.0) g/dL Hct 43.6 (42.0-52.0) % MCV 81.8 (80-100) fl MCH 26.6 (26-34) pg MCHC 32.6 (32-36) g/dl RDW 13.2 (11.5-14.5) % Plt Count 388 H (150-375) k/mm3 MPV 8.5 (7.4-10.4) fl Immature Gran % (Auto) 0.4 (0-0.5) % Neut % (Auto) 70.9 (45.5-73.1) % Lymph % (Auto) 20.3 (18.3-44.2) % Store[place] % (Auto) 6.6 (2.6-8.5) % Eos % (Auto) 1.5 (0-4.4) % Baso % (Auto) 0.3 (0.2-1.2) % Lymph # (Auto) 1.99 (0.9-3.2) K/mm3 [place] # (Auto) 0.7 H (0.1-0.6) K/mm3 Eos # (Auto) 0.2 (0-0.3) K/mm3 Baso # (Auto) 0.0 (0.0-0.1) K/mm3 Abs Immat Gran (auto) 0.04 H (0.00-0.031) K/mm3 Absolute Neuts (auto) 6.9 H (1.3-6.7) K/mm3 Absolute Nucleated RBC 0.000 (0.0-0.012) K/mm3 Nucleated RBC % 0.0 (0.0-0.2) % PT 12.9 (11.1-14.7) Seconds INR 1.0 APTT 35.2 (22.3-36.8) Seconds Sodium 137 (137-145) mmol/L Potassium 3.7 (3.4-5.0) mmol/L Chloride 101 (98-107) mmol/L Carbon Dioxide 23 (22-30) mmol/L Anion Gap 13 H (4-12) mmol/L BUN 12 (9-20) mg/dL Creatinine 0.90 (0.7-1.3) mg/dL Estim Creat Clear Calc 92 ml/min Estimated GFR > 60 (59 - ) Glucose 100 (65-110) mg/dL Calcium 10.0 (8.4-10.2) mg/dL Total Bilirubin 0.4 (0.2-1.3) mg/dL AST 34 (17-59) U/L ALT 45 (6-50) U/L Alkaline Phosphatase 99 (38-126) U/L Troponin I < 0.012 < 0.012 (0.000-0.034) ng/mL Total Protein 8.4 H (6.3-8.2) g/dL Albumin 4.6 (3.5-5.1) g/dL Lipase 39 (23-300) U/L <Celestino Ledezma MD - Last Filed: 10/08/24 06:10> Discharge Plan Discharge Clinical Impression: Atypical chest pain, Adenopathy Pneumonia Qualifiers: Pneumonia type: due to unspecified organism Laterality: right Lung location: upper lobe of lung Qualified Code(s): J18.9 - Pneumonia, unspecified organism <GARY Bourgeois Last Filed: 10/08/24 02:20> Patient Disposition: Home <GARY Bourgeois Last Filed: 10/08/24 02:20> Condition: Stable <GARY Bourgeois Last Filed: 10/08/24 02:20> Instructions: Antibiotic Form, Chest Pain (ED), Bacterial Pneumonia (DC) <GARY Bourgeois Last Filed: 10/08/24 02:20> Additional Instructions: Please take the antibiotics as directed. Your found have a large lymph nodes in your right lung which is likely reactive to the pneumonia, however Please follow-up closely with her primary care provider for further evaluation. Return to the emergency department if you develop new or worsening chest pain, shortness of breath or other concerning symptoms. <GARY Bourgeois Last Filed: 10/08/24 02:20> Patient Language: Ukrainian <GARY Bourgeois Last Filed: 10/08/24 02:20> Prescriptions: New amoxicillin-pot clavulanate 875-125 mg tablet 1 tablet PO Q12H Qty: 14 0RF azithromycin 250 mg tablet See Rx Instructions .ROUTE .COMPLEX Qty: 6 0RF Rx Instructions: For 250 mg dose pack: take 500 mg today (day 1), then 250 mg for 4 days (days 2-5) <GARY Bourgeois Last Filed: 10/08/24 02:20> Follow-up/Referrals: Morteza Rodriguez DO [Primary Care Provider] - <GARY Bourgeois Last Filed: 10/08/24 02:20> Quality HEART score for chest pain patients History: slightly suspicious <GARY Bourgeois Last Filed: 10/08/24 02:20> ECG: normal <GARY Bourgeois Last Filed: 10/08/24 02:20> Age: < or = to 45 years <GARY Bourgeois Filed: 10/08/24 02:20> Risk factors: no risk factors known <Kareen Albarado PA-C - Last Filed: 10/08/24 02:20> Troponin: < or = to 1x normal limit <Kareen Albarado PA-C - Last Filed: 10/08/24 02:20> Heart score: 0 <Kareen Albarado PA-C - Last Filed: 10/08/24 02:20> 0 <Celestino Ledezma MD - Last Filed: 10/08/24 06:10>
[2024-10-07] MEDS: LORazepam INJ (*CRX) 2 MG/ML VIAL 0.5 MG IV PUSH (23:46)
[2024-10-08 00:01] VITALS: BP 137/86; PULSE 79; RESP 20; O2SAT 96
[2024-10-08 01:04] VITALS: PULSE 81; RESP 18; O2SAT 98
[2024-10-08 01:15] VITALS: PULSE 79; RESP 20; O2SAT 100
[2024-10-08] MEDS: AZITHROMYCIN 500 MG TABLET PO (02:29)
== END 2024-10-08 02:36 | disposition home or self-care (01) ==
PROVIDERS: Student in an Organized Health Care Education/Training Program; Emergency Provider Physician Assistant; PCP Internal Medicine
DX: R07.89 Other chest pain (principal); R59.9 Enlarged lymph nodes, unspecified; E78.5 Hyperlipidemia, unspecified; J45.909 Unspecified asthma, uncomplicated; Z87.891 Personal history of nicotine dependence; R94.31 Abnormal electrocardiogram [ECG] [EKG]
CPT/HCPCS: 36415; 71046; 71275; 80053; 83690; 84484; 85025; 85610; 85730; 93005; 96374; 99284; A9270; J2060; Q9967